=== PATIENT | female | born 1975 ===

== ENCOUNTER 2019-03-21 16:46 | Emergency (ER) | payer SELFPAY ==
[~2019-03-21 16:46] MED LIST: Iopamidol-370 76% 500 ML 1 ML ONE
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
[2019-03-21] MEDS ORDERED: Adacel (T-DAP) 0.5 ML SYRINGE ONE (18:20)
[2019-03-21] MEDS ORDERED: Fentanyl 100 MCG/2 ML VIAL ONE (18:40)
[2019-03-21] MEDS ORDERED: Lidocaine 1% w/Epinephrine 1:100K 20 ML VIAL ONE (18:52)
[2019-03-21 19:14] LABS: #Basophils 0.1 thou/uL (0.0-0.2); #Eosinphils 0.2 thou/uL (0.0-0.7); #Lymphocytes 2.5 thou/uL (1.20-3.40); #Monocytes 0.9 thou/uL (0.11-0.59); #Neutrophils 12.7 thou/uL (1.40-6.50); %Basophils 0.4 % (0.0-1.0); %Eosinophils 1.1 % (0.0-10.0); %Lymphocytes 15.5 % (21.0-51.0); %Monocytes 5.3 % (0.0-10.0); %Neutrophils 77.7 % (42.0-75.0); Hemoglobin 14.8 g/dL (12.0-16.0); Mean Corpuscular HGB CONC 33.7 g/dL (32.0-36.0); Mean Corpuscular Hemoglobin 31.8 pg (27.0-31.0); Mean Corpuscular Volume 94.4 fL (78.0-98.0); Mean Platelet Volume 8.6 fL (7.4-10.4); Platelet Count 249 thou/uL (130-400); RBC Distribution Width 13.3 % (11.5-14.5); Red Blood Cell (RBC) Count 4.67 mill/uL (4.20-5.40); White Blood Cell (WBC) Count 16.3 thou/uL (4.8-10.8)
[2019-03-21 19:20] LABS: BHCG - Serum Negative (NEGATIVE); Pregs Control Background? CLEAR/WHITE (CLR/WHITE); Pregs Control Bar Appear? YES (CONTROL BAR)
--- NOTE | 2019-03-21 19:25 | CT ---
CT CHEST WITH IV CONTRAST CT ABDOMEN WITH IV CONTRAST CT PELVIS WITH IV CONTRAST SAGITTAL REFORMATION OF THE THORACOLUMBAR SPINE 03/21/19 FINDINGS: No mediastinal hematoma or intimal flap in the aorta is seen to suggest transection. No pleural or pe ricardial effusions are seen. No pneumothoraces or pulmonary contusions are identified. The liver, spleen, pancreas, adrenal glands and kidneys are intact. There are cysts in the kidneys. T he patient is post cholecystectomy. The uterus and ovaries are present with a corpus luteal cyst on t he left. There is a small amount of free fluid in the pelvis. No free air is seen in the abdomen or p jeanette. The small bowel loops are not abnormally dilated. No fracture or subluxation is seen in the thoracolumbar spine. 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 IMPRESSION: 1. No CT evidence of acute intrathoracic or solid organ injury. 2. Corpus luteal cyst in the left ovary and a small amount of free fluid in the pelvis. Discussed over the telephone with ER physician, Dr. Adair at 6:10 p.m. POS: DIONICIO
[2019-03-21 19:27] LABS: ALT (SGPT) 13 U/L (8-55); AST (SGOT) 18 U/L (5-34); Albumin 4.2 g/dL (3.5-5.0); Alkaline Phosphatase 53 U/L (40-110); Anion Gap 13 mmol/L (10-20); BUN (Urea Nitrogen) 8 mg/dL (7.0-18.7); Bilirubin, Total 0.3 mg/dL (0.2-1.2); CK (CPK) 68 U/L (29-168); Calc. Creatinine Clearance 0 mL/min (70-130); Carbon Dioxide 21 mmol/L (22-29); Chloride 107 mmol/L (98-107); Estimated GFR-MDRD 69; Glucose 105 mg/dL (70-105); Protein, Total 7.2 g/dL (6.0-8.3); Sodium 137 mmol/L (136-145)
[2019-03-21] MEDS ORDERED: Bacitracin 1 PK ONE (19:40)
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
== END 2019-03-21 20:40 | disposition home or self-care (01) ==
LOC: ERS 16:46
DX: S01.81XA Laceration without foreign body of other part of head, initial encounter (principal); S81.011A Laceration without foreign body, right knee, initial encounter; F17.210 Nicotine dependence, cigarettes, uncomplicated; Z23 Encounter for immunization; V29.9XXA Motorcycle rider (driver) (passenger) injured in unspecified traffic accident, initial encounter
CPT/HCPCS: 12001; 12011; 12051; 70450; 71260; 72125; 74177; 80053; 82550; 84703; 85025; 90471; 90715; 96365; 96375; G0390; J1956; J3010; Q9967